=== PATIENT | female | born 2000 | race Caucasian/White ===

== ENCOUNTER → 2023-04-09 | Emergency (ER) | payer OTHER ==
[~2023-04-09] VITALS: Ht 152.4 cm; Wt 81.6 kg
[~2023-04-09] MED LIST: WELLBUTRIN SR150 MG PO
== END | disposition home or self-care (01) ==
LOC: ER 18:40
DX: R53.81 Other malaise (principal); R53.1 Weakness; Z20.822 Contact with and (suspected) exposure to COVID-19

== ENCOUNTER 2023-11-15 18:00 | Emergency (ER) | payer OTHER ==
[~2023-11-15] VITALS: Ht 177.8 cm; Wt 84.4 kg
[2023-11-16] MEDS ORDERED: DOLOGESIC-DF 51 EACH PO (02:24)
[2023-11-16] MEDS ORDERED: ZYNCOF 20-400120 ML PO (02:24)
== END 2023-11-16 03:37 ==
LOC: ER 18:00
DX: J10.1 Influenza due to other identified influenza virus with other respiratory manifestations (principal); Z20.822 Contact with and (suspected) exposure to COVID-19

== ENCOUNTER 2024-02-16 06:50 | Outpatient (CLI) | payer OTHER ==
[~2024-02-16 06:50] MED LIST changes: +DOLOGESIC-DF 51 EACH PO; +ZYNCOF 20-400120 ML PO
[2024-02-16 08:03] LABS: HEMOGLOBIN 13.3 g/dL (12.0-15.00); MEAN CELL VOLUME 88.7 fL (80.00-100.00); MEAN CORPUSCULAR HEMOGLOBIN 31.2 pg (27.00-32.0); MEAN CORPUSCULAR HGB CONC 35.2 g/dl (32.0-36.0); PLATELET COUNT 243 K/uL (150-450); RED BLOOD COUNT 4.28 M/uL (4.00-6.00); RED CELL DISTRIBUTION WIDTH 13.4 % (11.5-14.5)
[2024-02-16 08:20] LABS: PH,URINE 5.5 (5.0-8.0); URINE APPEARANCE Turbid; URINE BILIRRUBIN Negative (NEGATIVE); URINE BLOOD Negative; URINE COLOR Dark Yellow; URINE GLUCOSE Negative (NEGATIVE); URINE LEUKOCYTE Small; URINE NITRATE Negative; URINE PROTEIN Trace (NEGATIVE)
[2024-02-16 08:24] LABS: URINE BACTERIA 1356.9 uL (0.0-1933); URINE EPITHELIAL CELLS 76.9 uL (0.0-38.8); URINE RBC 11.2 uL (0.0-20.8); URINE WBC 50.2 uL (0.0-23.2)
[2024-02-16 08:52] LABS: BILIRUBIN TOTAL 0.57 mg/dL (0.3-1.2); CALCIUM 9.2 mg/dL (8.5-10.1); CHOL HDL RATIO 5.3 (0-5.0); CREATININE SERUM 0.98 mg/dL (0.55-1.02); GFR 69.15; GLOBULINA 3.5 G/DL (2.4-3.5); POTASSIUM 3.73 mEq/L (3.5-5.1); TOTAL PROTEIN 7.5 gm/dL (6.4-8.2); TSH 1.88 uIU/mL (0.358-3.74)
[2024-02-16 15:18] LABS: RAPID PLASMA REAGIN NONREACTIVE BY RPR (NONREACTIVE)
[2024-02-17 11:12] LABS: HSV I IGG TYPE SPECIFIC < 0.91 index (0.00-0.90)
[2024-02-17 13:07] LABS: FOLLICLE STIMULATING HORMONE 3.2 mIU/mL (.)
[2024-02-17 15:11] LABS: hav igm Negative (Negative); hcv Non Reactive (Non Reactive); hep b c Negative (Negative)
[2024-02-17 17:06] LABS: LEUTEINIZING HORMONE 12.3 mIU/mL (.)
== END 2024-02-16 14:26 | disposition home or self-care (01) ==
LOC: LAB 06:50
PROVIDERS: ATTEND Obstetrics & Gynecology
DX: Z11.3 Encounter for screening for infections with a predominantly sexual mode of transmission (principal); E55.9 Vitamin D deficiency, unspecified; N93.8 Other specified abnormal uterine and vaginal bleeding; I10 Essential (primary) hypertension; E78.2 Mixed hyperlipidemia; N95.1 Menopausal and female climacteric states; E03.8 Other specified hypothyroidism